=== PATIENT | male | born 1980 | race Two or more races ===

== ENCOUNTER 2017-10-13 08:17 | Day surgery (SDC) | payer OTHER ==
[2017-10-13] VITALS (8 sets, daily range): BP systolic 105–124; BP diastolic 64–78
[~2017-10-13] VITALS: Ht 172.7 cm; Wt 104.3 kg
--- NOTE | 2017-10-13 08:11 | Anethesia Preoperative Eval ---
Anesthesia Pre-op PMH/ROS General Date of Evaluation: Oct 13, 2017 Time of Evaluation: 09:20 Anesthesiologist: Lorna ASA Score: ASA 2 Mallampati Score Class I : Soft palate, uvula, fauces, pillars visible Class II: Soft palate, uvula, fauces visible Class III: Soft palate, base of uvula visible Class IV: Only hard plate visible Mallampati Classification: Class II Surgeon: Sina Diagnosis: IBS Surgical Procedure: Colonoscopy Anesthesia History: none Family History: no anesthesia problems Allergies: Coded Allergies: No Known Allergies (Unverified , 10/12/17) Medications: see eMAR Past Medical History Cardiovascular: Denies: HTN, CAD, AL, valve dz, arrhythmia, other Pulmonary: Denies: asthma, COPD, MARGOTH, other Gastrointestinal/Genitourinary: Reports: GERD, other - coughing blood since 2013, rectal bleeding hx Neurologic/Psychiatric: Reports: depression/anxiety Endocrine: Denies: DM, hypothyroidism, steroids, other HEENT: Denies: cataract (L), cataract (R), glaucoma, PILOT STATION (L), PILOT STATION (R), other Hematology/Immune: Denies: anemia, DVT, bleeding disorder, other Musculoskeletal/Integumentary: Reports: other - chronic low back pain PSxH Narrative: upper EGD 06/2017 Anesthesia Pre-op Phys. Exam Physician Exam Constitutional: NAD Neurologic: CN 2-12 intact Cardiovascular: RRR Respiratory: CTA Gastrointestinal: S/NT/ND Airway Exam Mallampati Score: Class II MO: full ROM: full Teeth: intact Dentures: no upper, no lower Anesthesia Pre-op A/P Labs chart reviewed Risk Assessment & Plan Assessment: A&Ox4 Plan: MAC Status Change Before Surgery: No Pre-Antibiotics Given Within 1 Hr of Incision: No Pauly Rothman CRNA Oct 13, 2017 08:11
--- NOTE | 2017-10-13 08:12 | Immediate Post-Op Evaluation ---
Immediate Post-Op Evalulation Immediate Post-Op Evalulation Procedure: Colonoscopy Date of Evaluation: Oct 13, 2017 Time of Evaluation: 09:50 IV Fluids: LR 450 ml Blood Products: 0 Estimated Blood Loss: 0 Urinary Output: 0 Blood Pressure Systolic: 120 Blood Pressure Diastolic: 77 Pulse Rate: 74 Respiratory Rate: 16 O2 Sat by Pulse Oximetry: 100 Temperature (Fahrenheit): 97.1 Pain Score (1-10): 0 Nausea: No Vomiting: No Complications none noted Patient Status: awake, reacts Hydration Status: adequate Given Within 1 Hr of Incision: Pauly Bedolla CRNA Oct 13, 2017 08:12
--- NOTE | 2017-10-13 08:13 | Short Stay Surgery H&P ---
History of Present Illness History of Present Illness Chief Complaint Abdominal pains with history of GI bleed/constipation/rectal bleeding HPI Horace Barton is a 37 year old male who was admitted on for IBS and abdominal pains/rectal bleeding Patient History Allergies: Coded Allergies: No Known Allergies (Unverified , 10/12/17) PAST MEDICAL HISTORY: Past Surgeries: Social History: Review of Systems Cardiovascular: Reports: no symptoms Respiratory: Reports: no symptoms Skeletal: Reports: no symptoms Gastrointestinal: Reports: gastro esophageal reflux disease Genitourinary: Reports: no symptoms Neurologic: Reports: no symptoms Endocrine: Reports: no symptoms Hematologic: Reports: no symptoms Physical Exam Skin: normal HENT: normal Heart: normal Lungs: normal Abdomen: abnormal Extremities: normal Genitourinary: normal Plan Plan of Care Total colonoscopy Preop Interventions None Summary of Findings See the reports Final Diagnosis: Attestation Are the patient's medical conditions optimized for surgery? Attestation Response: yes MASOUD ESTRELLA Oct 13, 2017 08:13
--- NOTE | 2017-10-13 08:14 | Pre-Procedure Note/Attestation ---
Pre-Procedure Note/Attestation Complete Prior to Procedure Planned Procedure: left Procedure Narrative: Endoscopic exam of the colon Indications for Procedure Pre-Operative Diagnosis: R/O Hemorrhoids/colitis Attestation I attest that I discussed the nature of the procedure; its benefits; risks and complications; and alternatives (and the risks and benefits of such alternatives ), prior to the procedure, with the patient (or the patient's legal sales development representative). I attest that, if there was a reasonable possibility of needing a blood transfusion, the patient (or the patient's legal sales development representative) was given the [facility] standardized written summary, pursuant to the Micah Carole Blood Safety Act ([place] Health and Safety Code # 1645, as amended). I attest that I re-evaluated the patient just prior to the surgery and that there has been no change in the patient's H&P, except as documented below: DELORES,SAID Oct 13, 2017 08:14
[~2017-10-13 08:17] MED LIST: LR 1000ml 1,000 ML IVLG SCH
[2017-10-13] MEDS ORDERED: NKM (08:55)
[2017-10-13] MEDS ORDERED: Lidocaine 1% MPF 10mg/ml 5ml ONE (09:00)
[2017-10-13] MEDS ORDERED: Propofol 200mg/20ml IV ONE (09:00)
[2017-10-13] MEDS ORDERED: Midazolam 2mg/2ml Inj ONE (09:00)
[2017-10-13] MEDS ORDERED: LR 1000ml ONE (09:00)
--- NOTE | 2017-10-13 09:46 | Endoscopy Procedure Note ---
Endoscopy Procedure Note General Indication for Procedure: Rectal bleeding and abdominal pains Procedures Performed: colonoscopy - Minimal internal hemorrhoids otherwise completely normal total colonoscopy. Specimen: none Pt Tolerated Procedure Well: Yes Estimated Blood Loss: none Anesthesia Anesthesiologist: Ms. Pauly Rothman RN Anesthesia: moderate sedation Medications Medication Given: see anesthesia record Inserted Devices Implant(s) used?: No Quality Quality of Bowel Preparation: Good Did scope reach the cecum?: Yes GI Core Measures 50 yrs or older w/o bx or poly: No 10yrs. F/U not recommended: No 10 yrs. F/U needed: No Med reason:<3 yrs.: System Reason:<3 yrs.: Last colonoscopy >= to 3yrs: No MASOUD ESTRELLA Oct 13, 2017 09:46
--- NOTE | 2017-10-13 09:47 | Discharge Instructions ---
Discharge Instructions Discharge Instructions Follow up with: Visit Dr. jacobs after 2 weeks in office. For Congestive Heart Failure Reminder Report to your physician any weight gain of 5 pounds or more in one week. DELORES,SAID Oct 13, 2017 09:47
--- NOTE | 2017-10-13 10:05 | 48 Hour Post Anesthesia Eval ---
Post Anesthesia Evaluation Procedure: Colonoscopy Date of Evaluation: Oct 13, 2017 Time of Evaluation: 10:05 Blood Pressure Systolic: 122 0: 68 Pulse Rate: 74 Respiratory Rate: 18 Temperature (Fahrenheit): 97.1 O2 Sat by Pulse Oximetry: 100 Airway: patent Nausea: No Vomiting: No Pain Intensity: 0 Hydration Status: adequate Mental Status/LOC: patient returned to baseline Post-Anesthesia Complications: none noted Follow-up care needed: patient intructions given Pauly Rothman CRNA Oct 13, 2017 10:05
--- NOTE | 2017-10-13 18:15 | Pre-op HX & Phy Repo 2 SIG ---
DATE OF ADMISSION: 10/13/2017 REFERRING PHYSICIAN: Ector Betancourt MD, not on the staff. HISTORY OF PRESENT ILLNESS: The applicant is a 37-year-old [place]-speaking gentleman who is being seen prior to undergoing the procedure of colonoscopy for which he has been scheduled to receive for evaluation of his rectal bleeding. The applicant basically was seen approximately a year ago and underwent an upper gastrointestinal endoscopy for the problem of gastroesophageal acid reflux, in which it was found that he did have esophagitis and gastritis. However, the patient continued to have rectal bleeding as he had mentioned before and finally, the authorization was received for this procedure. The applicant reports that he does have minimal amount of fresh bleeding on his stool as he goes to the bathroom. He does also complain of abdominal pain, which is generalized and continuation of gastroesophageal reflux and some difficulty swallowing, though he reports that he is taking his anti-acid and proton pump inhibitors as well. He reports that abdominal pain occasionally gets worse even by going to the bathroom and passing bowel movements. 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 PAST MEDICAL HISTORY: Nonsignificant. He denies hypertension, hypercholesterolemia, arthritis, etc. PAST SURGICAL HISTORY: Nonsignificant. FAMILY HISTORY: Nonsignificant. PHYSICAL EXAMINATION: GENERAL: At this time reveals alert and oriented gentleman, does not seem to be in any acute distress. He looks overweight. He answers the questions quite properly. VITAL SIGNS: Stable HEENT: Normocephalic. Pupils equal in size and reactive to light and accommodation. No visible jaundice. NECK: Supple. No JVD, thyromegaly, or adenopathy. CHEST: Clear to auscultation and percussion. No rales or rhonchi. HEART: S1 and S2 normal. Regular rhythm. No gallops or murmur. ABDOMEN: Soft, obese, but tender mostly over the epigastric area and some parts of the lower abdomen, the right and left side. No palpable mass. No hepatosplenomegaly. Bowel sounds are present. EXTREMITIES: No pretibial edema, cyanosis, or clubbing. CENTRAL NERVOUS SYSTEM: Grossly normal. SKIN AND LYMPHATICS: Nonsignificant. PRELIMINARY PREOPERATIVE DIAGNOSES: 1. History of rectal bleeding of uncertain etiology, rule out hemorrhoids versus colitis, polyps, tumors, etc. 2. History of gastroesophageal reflux, chronic, aggravated by usage of nonsteroidal anti-inflammatory agents. RECOMMENDATIONS: The applicant at this time seems to be stable to undergo the procedure of colonoscopic examination, for which he has been scheduled and authorized. He understands the risks and benefits and will sign the consent. Said Ana Andino DR: Sandor JOB#: [id number] CC:
--- NOTE | 2017-10-13 21:00 | Procedure Note ---
DATE OF PROCEDURE: 10/13/2017 SURGEON: Carmela Andino M.D. REFERRING PHYSICIAN: Ector Betancourt M.D. PROCEDURE: Total colonoscopy. PREOPERATIVE DIAGNOSES: 1. Rectal bleeding. 2. Abdominal pain. POSTOPERATIVE DIAGNOSIS: Minimal internal hemorrhoids, otherwise completely normal total colonoscopy up to the base of the cecum as examined. MEDICATION USED: Per Ms. Rosenbergal Lorna, kitman. INSTRUMENT: GIF Olympus video colonoscope. DESCRIPTION OF PROCEDURE: The patient after arriving endoscopy unit, was told about risks and benefits of the procedure, which he accepted and signed informed consent. At this time, he was put on the left lateral decubitus position. After adequate IV sedation, the scope was gently passed through the anal area. A retroflexion maneuver was applied, which revealed evidence of minimal internal hemorrhoids, but they were not friable at this time. The rest of the rectum looked completely normal. At this time, the scope was passed through highly redundant left colon, which took some time to reach the splenic flexure. This area was completely also normal without any pathological findings. There was no tumor, polyps, inflammatory process, ulceration, etc. At this time, the scope was advanced into the transverse colon reaching to hepatic flexure, and finally was guided into the right colon all the way to the base of the cecum. All these areas were also found to be completely normal and no pathology found. The colon cleanup was adequate and good. At this point, after reaching to the base of the cecum, within 7 minutes, the scope was gradually pulled out and re-evaluation of the colon did not reveal any other abnormalities. The patient tolerated the procedure well and left the endoscopy room in a good condition. Carmela Andino M.D. DR: KENNY JOB#: [id number] CC:
== END 2017-10-13 11:30 | disposition home or self-care (01) ==
LOC: GAS 08:17
DX: K64.8 Other hemorrhoids (principal); K21.9 Gastro-esophageal reflux disease without esophagitis; F32.9 Major depressive disorder, single episode, unspecified; F41.9 Anxiety disorder, unspecified; K58.9 Irritable bowel syndrome, unspecified
CPT/HCPCS: 45378; J2250; J2704; J7120; 94003; 94150